=== PATIENT | female | born 1980 | race Caucasian/White ===

== ENCOUNTER 2021-01-11 14:34 | Inpatient (IN) | payer OTHER ==
[~2021-01-11] VITALS: Ht 154.9 cm; Wt 49.1 kg
[2021-01-11] VITALS (14 sets, daily range): BP systolic 85–112; BP diastolic 47–65; PULSE 100–140; TEMP 98.9–101.4
[2021-01-11 18:47] LABS: IRON,SERUM 18 ug/dL (35-150)
[2021-01-11 18:56] LABS: TOTAL IRON BINDING CAPACITY 327 ug/dL (265-497)
[2021-01-11 19:38] LABS: RETIC # 0.07 M/mm3 (0.02-0.16); RETIC % 1.9 % (0.5-3.52)
[2021-01-12] VITALS (10 sets, daily range): BP systolic 85–110; BP diastolic 53–71; PULSE 86–99; TEMP 98–98.6
[2021-01-12 07:20] LABS: MEAN CELL VOLUME 66 fl (80.0-100.0); MEAN CORPUSCULAR HGB CONC 28 g/dl (33.0-37.0); MEAN PLATELET VOLUME 9.2 fl (7.4-10.4); PLATELET COUNT 748 K/mm3 (130-400); RED BLOOD COUNT 3.69 M/mm3 (4.10-5.30); REDCELL DISTRIBUTION WIDTH-CV 27.9 % (11.5-14.5)
[2021-01-12 07:27] LABS: CALCIUM 7.9 mg/dL (8.4-10.2); CREATININE, serum 0.46 (0.52-1.25); POTASSIUM 3.1 mmol/L (3.4-5.0)
[2021-01-12 07:38] LABS: HEMATOCRIT 24.5 % (37.0-47.0); HEMOGLOBIN 6.9 g/dl (12.5-16.0); MEAN CORPUSCULAR HEMOGLOBIN 19 pg (27.0-31.0)
[2021-01-12 09:27] LABS: BAND 19 % (0-10); LYMPHOCYTE 7 % (20.0-51.0); NEUTROPHILS 74 % (42.0-75.2)
[2021-01-12 09:30] LABS: HYPOCHROMIA 2+
[2021-01-12 09:31] LABS: STOMATOCYTE 1+
[2021-01-12 18:14] LABS: FOLATE (FOLIC ACID) 14.1 ng/mL (7.0-31.4)
[2021-01-13 00:11] VITALS: BP 111/68; PULSE 96; TEMP 98.8
[2021-01-13 04:20] VITALS: BP 99/61; PULSE 94; TEMP 98.1
[2021-01-13 07:16] LABS: MEAN CORPUSCULAR HGB CONC 29 g/dl (33.0-37.0); MEAN PLATELET VOLUME 9.1 fl (7.4-10.4); RED BLOOD COUNT 3.98 M/mm3 (4.10-5.30); REDCELL DISTRIBUTION WIDTH-CV 28.7 % (11.5-14.5)
[2021-01-13 07:20] LABS: HEMATOCRIT 28.4 % (37.0-47.0); HEMOGLOBIN 8.1 g/dl (12.5-16.0); MEAN CELL VOLUME 71 fl (80.0-100.0); MEAN CORPUSCULAR HEMOGLOBIN 20 pg (27.0-31.0); PLATELET COUNT 605 K/mm3 (130-400)
[2021-01-13 07:28] LABS: CREATININE, serum 0.53 (0.52-1.25); POTASSIUM 3.9 mmol/L (3.4-5.0)
[2021-01-13 07:39] VITALS: BP 99/67; PULSE 87; TEMP 98.2
[2021-01-13 08:26] LABS: BAND 9 % (0-10); EOSINOPHIL 2 % (0-4); HYPOCHROMIA 2+; LYMPHOCYTE 12 % (20.0-51.0); METAMYELOCYTE 2 % (0-0); NEUTROPHILS 74 % (42.0-75.2); PLATELET ESTIMATE INCREASED (NORMAL)
[2021-01-13 08:27] LABS: OVALOCYTES 1+; TEAR DROP CELLS 1+
[2021-01-13 12:00] VITALS: BP 122/80; PULSE 98; TEMP 98.5
[2021-01-13 12:31] LABS: HAPTOGLOBIN 405 mg/dL (35-250)
[2021-01-13 16:00] VITALS: BP 142/73; PULSE 108; TEMP 99.2
[2021-01-13 20:41] VITALS: BP 112/70; PULSE 111; TEMP 98.7
[2021-01-14 00:02] VITALS: BP 115/77; PULSE 102; TEMP 99.5
[2021-01-14 04:39] VITALS: BP 112/70; PULSE 96; TEMP 98.5
[2021-01-14 06:28] LABS: MEAN CELL VOLUME 72 fl (80.0-100.0); MEAN CORPUSCULAR HGB CONC 28 g/dl (33.0-37.0); PLATELET COUNT 617 K/mm3 (130-400); RED BLOOD COUNT 3.83 M/mm3 (4.10-5.30)
[2021-01-14 06:37] LABS: CALCIUM 7.6 mg/dL (8.4-10.2); CREATININE, serum 0.5 (0.52-1.25); POTASSIUM 3.4 mmol/L (3.4-5.0)
[2021-01-14 06:39] LABS: HEMATOCRIT 27.6 % (37.0-47.0); HEMOGLOBIN 7.8 g/dl (12.5-16.0); MEAN CORPUSCULAR HEMOGLOBIN 20 pg (27.0-31.0)
[2021-01-14 07:37] LABS: ANISOCYTOSIS 3+; BAND 13 % (0-10); HYPOCHROMIA 2+; LYMPHOCYTE 7 % (20.0-51.0); METAMYELOCYTE 1 % (0-0); NEUTROPHILS 74 % (42.0-75.2); PLATELET ESTIMATE INCREASED (NORMAL)
[2021-01-14 07:53] VITALS: BP 110/62; PULSE 96; TEMP 98.3
[2021-01-14 12:46] VITALS: BP 107/70; PULSE 86; TEMP 98.7
[2021-01-14 17:34] VITALS: BP 121/75; PULSE 94; TEMP 99
[2021-01-14 19:58] VITALS: BP 129/73; PULSE 94; TEMP 98.4
[2021-01-15 00:40] VITALS: BP 127/86; PULSE 91; TEMP 98.5
[2021-01-15 05:04] VITALS: BP 126/82; PULSE 86; TEMP 98.6
[2021-01-15 06:48] LABS: MEAN CELL VOLUME 74 fl (80.0-100.0); MEAN CORPUSCULAR HGB CONC 28 g/dl (33.0-37.0); MEAN PLATELET VOLUME 8.9 fl (7.4-10.4); PLATELET COUNT 674 K/mm3 (130-400); RED BLOOD COUNT 4.23 M/mm3 (4.10-5.30); REDCELL DISTRIBUTION WIDTH-CV 30.5 % (11.5-14.5)
[2021-01-15 06:59] LABS: CALCIUM 8.4 mg/dL (8.4-10.2); CREATININE, serum 0.5 (0.52-1.25); POTASSIUM 4.2 mmol/L (3.4-5.0)
[2021-01-15 07:05] LABS: HEMATOCRIT 31.2 % (37.0-47.0); HEMOGLOBIN 8.7 g/dl (12.5-16.0); MEAN CORPUSCULAR HEMOGLOBIN 21 pg (27.0-31.0)
[2021-01-15 07:21] LABS: BAND 2 % (0-10); EOSINOPHIL 3 % (0-4); LYMPHOCYTE 3 % (20.0-51.0); MYELOCYTE 2 % (0-0); NEUTROPHILS 85 % (42.0-75.2)
[2021-01-15 07:22] LABS: ANISOCYTOSIS 1+; HYPOCHROMIA 2+; MICROCYTOSIS 1+; SCHISTOCYTES 1+
[2021-01-15 07:56] VITALS: BP 117/82; PULSE 92; TEMP 97.9
[2021-01-15 12:24] VITALS: BP 112/76; PULSE 94; TEMP 97.7
[2021-01-15 16:09] VITALS: BP 114/76; PULSE 87; TEMP 97.8
[2021-01-15 20:21] VITALS: BP 112/74; PULSE 69; TEMP 98.7
[2021-01-16] VITALS (7 sets, daily range): BP systolic 100–118; BP diastolic 63–76; PULSE 86–101; TEMP 97.6–98.6
[2021-01-16 06:40] LABS: MEAN CELL VOLUME 74 fl (80.0-100.0); MEAN CORPUSCULAR HGB CONC 28 g/dl (33.0-37.0); PLATELET COUNT 650 K/mm3 (130-400); RED BLOOD COUNT 4.56 M/mm3 (4.10-5.30)
[2021-01-16 06:52] LABS: CALCIUM 8.9 mg/dL (8.4-10.2); CREATININE, serum 0.51 (0.52-1.25)
[2021-01-16 07:03] LABS: HEMATOCRIT 33.8 % (37.0-47.0); HEMOGLOBIN 9.4 g/dl (12.5-16.0); MEAN CORPUSCULAR HEMOGLOBIN 21 pg (27.0-31.0)
[2021-01-16 09:55] LABS: ANISOCYTOSIS 3+; BAND 3 % (0-10); EOSINOPHIL 3 % (0-4); LYMPHOCYTE 16 % (20.0-51.0); MYELOCYTE 2 % (0-0); NEUTROPHILS 70 % (42.0-75.2); PLATELET ESTIMATE INCREASED (NORMAL)
[2021-01-16 09:56] LABS: HYPOCHROMIA 3+; MICROCYTOSIS 1+
[2021-01-17 04:13] VITALS: BP 104/67; PULSE 86; TEMP 97
[2021-01-17 06:39] LABS: MEAN CELL VOLUME 74 fl (80.0-100.0); MEAN CORPUSCULAR HGB CONC 28 g/dl (33.0-37.0); PLATELET COUNT 632 K/mm3 (130-400); RED BLOOD COUNT 4.43 M/mm3 (4.10-5.30)
[2021-01-17 06:56] LABS: HEMATOCRIT 32.6 % (37.0-47.0); HEMOGLOBIN 9.2 g/dl (12.5-16.0); MEAN CORPUSCULAR HEMOGLOBIN 21 pg (27.0-31.0)
[2021-01-17 07:50] VITALS: BP 100/65; PULSE 91; TEMP 98.3
[2021-01-17 10:36] LABS: BAND 5 % (0-10); HYPOCHROMIA 3+; LYMPHOCYTE 18 % (20.0-51.0); NEUTROPHILS 72 % (42.0-75.2); OVALOCYTES 1+; PLATELET ESTIMATE INCREASED (NORMAL)
[2021-01-17 11:10] VITALS: BP 88/71; PULSE 93; TEMP 98.2
[2021-01-17 14:57] VITALS: BP 96/59; PULSE 89; TEMP 98.2
[2021-01-17 20:00] VITALS: BP 99/58; PULSE 68; TEMP 98.2
[2021-01-18 00:28] VITALS: BP 104/68; PULSE 90; TEMP 98.3
[2021-01-18 04:00] VITALS: BP 109/69; PULSE 88; TEMP 97.9
[2021-01-18 06:25] LABS: MEAN CELL VOLUME 73 fl (80.0-100.0); MEAN CORPUSCULAR HGB CONC 28 g/dl (33.0-37.0); MEAN PLATELET VOLUME 8.8 fl (7.4-10.4); PLATELET COUNT 661 K/mm3 (130-400); RED BLOOD COUNT 4.29 M/mm3 (4.10-5.30)
[2021-01-18 06:35] LABS: HEMATOCRIT 31.4 % (37.0-47.0); HEMOGLOBIN 8.8 g/dl (12.5-16.0); MEAN CORPUSCULAR HEMOGLOBIN 21 pg (27.0-31.0)
[2021-01-18 07:50] LABS: ANISOCYTOSIS 2+; BAND 4 % (0-10); HYPOCHROMIA 1+; LYMPHOCYTE 9 % (20.0-51.0); MYELOCYTE 1 % (0-0); NEUTROPHILS 84 % (42.0-75.2); PLATELET ESTIMATE INCREASED (NORMAL)
[2021-01-18 08:33] VITALS: BP 108/71; PULSE 99; TEMP 97.3
[2021-01-18 11:35] VITALS: BP 115/74; PULSE 95; TEMP 97.7
[2021-01-18 17:17] VITALS: BP 116/74; PULSE 103; TEMP 98.5
[2021-01-18 20:14] VITALS: BP 103/67; PULSE 97; TEMP 98.2
[2021-01-19 07:33] VITALS: BP 113/67; PULSE 105; TEMP 97.4
[2021-01-19 07:34] LABS: BASO # 0.1 (0.0-0.2); BASO % 0.4 % (0.0-2.0); EOS # 0.4 (0.0-0.7); EOS % 2.3 % (0-4.0); GRAN # 14.2 (1.4-6.5); LYMPH # 2.3 (1.2-3.4); LYMPH % 12.9 % (20.0-51.0); MEAN CELL VOLUME 73 fl (80.0-100.0); MEAN CORPUSCULAR HGB CONC 29 g/dl (33.0-37.0); MEAN PLATELET VOLUME 8.5 fl (7.4-10.4); MONO % 5.3 % (1.7-9.3); RED BLOOD COUNT 4.67 M/mm3 (4.10-5.30)
[2021-01-19 07:39] LABS: HEMATOCRIT 34.2 % (37.0-47.0); HEMOGLOBIN 9.9 g/dl (12.5-16.0); MEAN CORPUSCULAR HEMOGLOBIN 21 pg (27.0-31.0); PLATELET COUNT 769 K/mm3 (130-400)
[2021-01-19 07:45] LABS: CALCIUM 9.4 mg/dL (8.4-10.2); CREATININE, serum 0.51 (0.52-1.25); POTASSIUM 4.2 mmol/L (3.4-5.0)
[2021-01-19] MEDS ORDERED: CIPRO 500MG TA500 MG PO (09:49)
[2021-01-19] MEDS ORDERED: FLAGYL500 MG PO (09:50)
[2021-01-19] MEDS ORDERED: FERROUS SU325 MG/TAB PO (09:50)
[2021-01-19 11:08] VITALS: BP 100/71; PULSE 92; TEMP 98.4
== END 2021-01-19 11:44 | disposition home or self-care (01) | DRG 372 ==
LOC: SURG 14:34 → JCC 16:00
PROVIDERS: Hospitalist; Physician Assistant; Student in an Organized Health Care Education/Training Program; Surgery; ADMIT Surgery
PROC: 0W9G30Z Drainage of Peritoneal Cavity with Drainage Device, Percutaneous Approach (ICD-10-PCS; principal; 2021-01-11)
PROC: 02HV33Z Insertion of Infusion Device into Superior Vena Cava, Percutaneous Approach (ICD-10-PCS; 2021-01-12)
DX: K65.1 Peritoneal abscess (principal); E44.0 Moderate protein-calorie malnutrition; D50.9 Iron deficiency anemia, unspecified; E87.6 Hypokalemia; N83.202 Unspecified ovarian cyst, left side; D69.6 Thrombocytopenia, unspecified; Z86.16 Personal history of COVID-19
CPT/HCPCS: 99222; 99231-AI; 99232-AI; 99233-AI; C1729; C1751; J2250; J2405; J2543; J3010; J3480; J7030; P9016; Q9967